=== PATIENT | male | born 1990 | race Caucasian/White ===

== ENCOUNTER 2024-05-19 18:44 | Emergency (ER) | payer BC, SELFPAY ==
[2024-05-19 18:47] VITALS: BP 133/73; PULSE 89; TEMP 36.6; O2SAT 99; BMI 24.1
--- NOTE | 2024-05-19 19:01 | PC.NURSE ---
Scattered raised red rash in pelvic area only. States over the counter medications not helping
--- NOTE | 2024-05-19 19:29 | ED.SKABFB1 ---
HPI - Skin/Abscess/Foreign Bdy General Chief complaint: Skin/Abscess/Foreign Body Stated complaint: SKIN IRRITATION/RASH Time Seen by Provider: 05/19/24 19:28 History of Present Illness HPI narrative: 34-year-old male presents to the emergency department for a rash in his groin area. It is bilateral and there is been no drainage. Sometimes it is pruritic. It is not elsewhere on his body and it has been continuous and he has had it for several days. He put some cortisone cream on it but it did not help. Related Data Home Medications ?Medication ?Instructions ?Recorded ?Confirmed meloxicam 15 mg tablet 15 mg PO DAILY 05/19/24 05/19/24 Previous Rx's ?Medication ?Instructions ?Recorded clotrimazole-betamethasone 1 1 applic topical BID #45 grams 05/19/24 %-0.05 % topical cream fluconazole 100 mg tablet 100 mg PO DAILY 7 days #7 tabs 05/19/24 (Diflucan) Allergies Allergy/AdvReac Type Severity Reaction Status Date / Time No Known Drug Allergies Allergy Verified 05/19/24 18:51 Review of Systems ROS Narrative A ten point review of systems is negative except as noted above. PFSH PFSH Social History Little interest or pleasure in doing things: not at all Feeling down, depressed, or hopeless: not at all Exam Narrative Exam Narrative: Nurses note and vital signs reviewed and patient is not hypoxic. General: The patient appears well and in no apparent distress. Patient is resting comfortably on cart. Skin: Warm, dry, no pallor noted. There is erythematous scattered rash present in the bilateral groin area consistent with a fungal skin infection. No abscess present. Head: Normocephalic, atraumatic Eye: Normal conjunctiva, no drainage Ears, Nose, Mouth, and Throat: oral mucosa is moist. Nares patent. Cardiovascular: Regular Rate and Rhythm Respiratory: Patient is in no distress, no accessory muscle use Back: non-tender GI: Nontender Musculoskeletal: No joint swelling Neurological: Awake and alert Psychiatric: Cooperative Constitutional Vital Signs, click to edit/add: Last Vital Signs Temp 98 F 05/19/24 18:47 Pulse 89 05/19/24 18:47 Resp 16 05/19/24 18:47 BP 133/73 05/19/24 18:47 Pulse Ox 99 05/19/24 18:47 O2 Del Method Room Air 05/19/24 18:47 Course Vital Signs Vital signs: Vital Signs Temperature 98 F 05/19/24 18:47 Pulse Rate 89 05/19/24 18:47 Respiratory Rate 16 05/19/24 18:47 Blood Pressure 133/73 05/19/24 18:47 Pulse Oximetry 99 05/19/24 18:47 Oxygen Delivery Method Room Air 05/19/24 18:47 Temperature 98 F 05/19/24 18:47 Pulse Rate 89 05/19/24 18:47 Respiratory Rate 16 05/19/24 18:47 Blood Pressure 133/73 05/19/24 18:47 Pulse Oximetry 99 05/19/24 18:47 Oxygen Delivery Method Room Air 05/19/24 18:47 MDM - Skin/Abscess/Foreign Bdy MDM Narrative Medical decision making narrative: My clinical impression is that he has tinea cruris and he is prescribed Lotrisone and Diflucan. Treatment diagnosis and follow-up were discussed with the patient. Differential Diagnosis Differential diagnosis: Likely abscess of skin or subcutaneous tissue, dermatophytosis, cellulitis, insect bites and contact dermatitis Discharge Plan Discharge Chief Complaint: Skin/Abscess/Foreign Body Clinical Impression: Tinea cruris Patient Disposition: Home, Self-Care Time of Disposition Decision: 19:28 Condition: Good Mode of Transportation: Private Vehicle Prescriptions / Home Meds: New clotrimazole-betamethasone 1-0.05 % cream 1 applic topical BID Qty: 45 0RF fluconazole [Diflucan] 100 mg tablet 100 mg PO DAILY 7 Days Qty: 7 0RF No Action meloxicam 15 mg tablet 15 mg PO DAILY Print Language: Maldivian Instructions: Skin Yeast Infection (ED) Referrals: KERRY RAYMOND [Primary Care Provider] - 1 week
[2024-05-19 19:39] VITALS: BP 106/66; PULSE 68; O2SAT 98
== END 2024-05-19 19:42 | disposition home or self-care (01) ==
PROVIDERS: Emergency Provider Emergency Medicine; PCP Nurse Practitioner
DX: B35.6 Tinea cruris (principal)
CPT/HCPCS: 99283